=== PATIENT | female | born 1965 | race Caucasian/White ===

== ENCOUNTER 2020-01-25 11:07 | Outpatient (REF) | payer MEDICAID, SELFPAY | END 2020-01-25 11:08 | disposition home or self-care (01) | LOC: HO.LAB 11:07 | PROVIDERS: PCP Internal Medicine; Visit Provider Internal Medicine | DX: Z20.828 Contact with and (suspected) exposure to other viral communicable diseases (principal) | CPT/HCPCS: C9803; U0003 ==

== ENCOUNTER 2020-02-16 11:28 | Outpatient (REF) | payer MEDICAID, SELFPAY | END 2020-02-16 11:29 | disposition home or self-care (01) | LOC: HO.LAB 11:28 | PROVIDERS: PCP Internal Medicine; Visit Provider Internal Medicine | DX: Z20.828 Contact with and (suspected) exposure to other viral communicable diseases (principal) | CPT/HCPCS: 36415; C9803; U0003 ==

== ENCOUNTER 2021-11-07 15:14 | Emergency (ER) | payer MEDICAID, SELFPAY ==
[2021-11-07 16:24] VITALS: BP 114/70; PULSE 102; RESP 18; TEMP 37.4; O2SAT 98; BMI 34.2
[2021-11-07 17:08] LABS: MANUAL DIFF FLAG NO
[2021-11-07 17:31] LABS: COVID-19 Test Negative (Negative); IDNOW Serial# 16C4AD1C
[2021-11-07 17:36] LABS: Lactic Acid 1.3 mmol/L (0.5-2.0)
[2021-11-07 17:37] LABS: Basophils Percent Auto 0.4 % (0-2); Eosinophils Absolute Auto 0.1 X10*3/uL (0.0-0.4); Eosinophils Percent Auto 1.1 % (0-4); Hematocrit 42.5 % (37.0-47.0); Hemoglobin 14.3 g/dl (12.0-16.0); Imm Gran Abs Auto 0.03 X10*3/uL (0.00-0.03); Imm Gran Pct Auto 0.3 % (0.0-0.4); Lymphocytes Absolute Auto 2.1 X10*3/uL (1.2-4.9); Lymphocytes Percent Auto 19.8 % (20-40); Mean Corpuscular HGB Conc 33.6 g/dl (31.0-35.0); Mean Corpuscular Hemoglobin 29.7 pg (27.0-33.0); Mean Corpuscular Volume 88.2 fL (80.0-98.0); Mean Platelet Volume 10.7 fL (9.4-12.3); Monocytes Absolute Auto 1.1 X10*3/uL (0.1-1.2); Monocytes Percent Auto 10.3 % (2-11); Neutrophils Absolute Auto 7.1 x10*3/uL (2.0-8.3); Neutrophils Percent Auto 68.1 % (45-73); Platelet Count 204 X10*3/uL (160-400); Red Blood Count 4.82 X10*6/uL (4.20-5.50); White Blood Count 10.5 X10*3/uL (4.8-10.8)
[2021-11-07 17:41] LABS: Alanine Aminotransferase 24 U/L (0-31); Albumin Level 4.5 g/dL (3.5-5.0); Alkaline Phosphatase 94 U/L (39-117); Anion Gap 17 (12-20); Aspartate Amino Transferase 19 U/L (5-31); Bilirubin Total 0.7 mg/dL (0.0-1.0); Blood Urea Nitrogen 13 mg/dL (9-16); Calcium 9.4 mg/dL (8.4-10.2); Carbon Dioxide 25 mmol/L (22-29); Chloride 101 mmol/L (96-108); Creatinine Clr Calc Pharmacy 76.4; Estimated Glomerular Filt Rate > 60; Glucose Random 111 mg/dL (60-115); Potassium 4.5 mmol/L (3.3-5.1); Sodium 138 mmol/L (135-145); Total Protein 8.1 g/dL (6.5-8.0)
== END 2021-11-08 05:29 | disposition left against medical advice (07) ==
PROVIDERS: Emergency Provider Emergency Medicine
DX: R22.1 Localized swelling, mass and lump, neck (principal); Z20.822 Contact with and (suspected) exposure to COVID-19; R50.9 Fever, unspecified
CPT/HCPCS: 36415; 80053; 83605; 85025; 87040; 87635; 99282; 99283

== ENCOUNTER 2022-10-30 14:31 | Outpatient (AMB) | payer OTHER, SELFPAY ==
[2022-10-30 14:33] VITALS: BP 122/76; PULSE 104; O2SAT 97; BMI 33.7
--- NOTE | 2022-10-30 14:33 | A.OFFPC_ITS ---
Vital Signs 10/30/22 14:33 Height 5 ft 2 in Weight 184 lb BMI 33.7 BP 122/76 Blood Pressure Location Lt brachial Position Sitting Pulse 104 H Pulse Source Pulse Oximeter Temp Source Skin Pulse Oximetry (%) 97 Oxygen Delivery Method Room Air Intake Visit Reasons: [employer] pain in right arm Intake Note: pt states right arm pain [id number] Back Tacker Required: No Allergies metformin Adverse Reaction (Severe, Verified 10/30/22 14:59) Abdominal Pain Medication List - Last Reconciled 10/30/22 by SANGEETA Bain dulaglutide (Trulicity) 0.75 mg subcut QWEEK glipizide ER 2.5 mg PO DAILY Tobacco use date assessed: 10/30/22 Dental Screening Dental Screen Date: 10/30/22 Did you have a dental visit in the last 12 months?: Yes Did you have a dental problem in the last 6 months where you did not have access to dental care?: No Was dental information given to patient?: Patient has dentist HPI [employer] pain in right arm HPI Details Patient is a 56-year-old female who presents today to establish care. Previous PCP Dr. Guy perdomo [facility], last visit about 1 year ago. Medical history significant for diabetes - patient reports that she has been out of diabetes medications for the past 1 year, left shoulder pain-for the past about 2 months now-denies injury-reports pain is worse with activity-reports intermittent tingling sensation in her left wrist area- reports mild weakness in her left arm due to pain-reports taking Tylenol with no improvement, constipation-reports bowel movement and every 3-4 days. Patient reports last diabetic eye exam 1.5 years ago, patient also reports that doctor did see a dot in her right eye and at that time she did not need to have surgery- will refer to Ophthalmology for diabetic eye exam. Patient lives by herself and she works as a [employer]. [facility] Medical History (Updated 10/30/22 @ 15:22 by SANGEETA Bain) History of shingles Surgical History H/O tubal ligation History of cholecystectomy Family History Mother Diabetes Hypertension Intestinal cancer Glaucoma Father No problems noted. Social History Patient Tobacco Use Status: Never used Tobacco service: No Cognitive needs: No Hearing needs: No Vision needs: No Questionnaire PHQ-9 Over the last 2 weeks, how often have you been bothered by any of the following problems? 1. Little interest or pleasure in doing things: not at all 2. Feeling down, depressed, or hopeless: not at all 3. Trouble falling or staying asleep, or sleeping too much: not at all 4. Feeling tired or having little energy: not at all 5. Poor appetite or overeating: not at all 6. Feeling bad about yourself - or that you are a failure or have let yourself or your family down: not at all 7. Trouble concentrating on things, such as reading the newspaper or watching television: not at all 8. Moving or speaking so slowly that other people could have noticed. Or the opposite - being so fidgety or restless that you have been moving around a lot more than usual: not at all 9. Thoughts that you would be better off or of hurting yourself in some way: not at all Total score: 0 Depression Screening Interpretation: Negative 26837 - PHQ-9 Billing: Yes Source: Developed by Drs. Osmar Comer, Dbera Harper, Pablo Garcia and colleagues, with an educational madelaine from [employer]. Thrive Questionnaire Date Thrive assessed: 10/30/22 I am a: Patient What is your living situation today?: I have a steady place to live Within the past 12 months, did the food you bought not last and you didn't have the money to get more?: Never true Within the past 12 months, did you worry whether your food would run out before you got money to buy more?: Never true Do you have trouble paying for medicines?: No Do you have trouble getting transportation to medical appointments?: No Do you have trouble paying your heating and electricity bill?: No Do you have trouble taking care of your child, family member or friend?: No Do you have trouble with day-to-day activities such as bathing, preparing meals, shopping, managing finances, etc.?: No Are you currently unemployed and looking for a job?: No Are you interested in more education?: No Currently or been in a relationship where the following occur: no concerns reported AUDIT C Alcohol Use Questionnaire (AUDIT-C) 1. How often do you have a drink containing alcohol?: Never 3. How often do you have six or more drinks on one occasion?: Never Total Score: 0 Score Reviewed/Action Taken: No ROWDY-7 AMB Questionnaire ROWDY-7 Date ROWDY - 7 assessed: 10/30/22 Feeling nervous, anxious, or on edge: 0 = Not at all Not being able to stop or control worryin = Not at all Worrying too much about different things: 0 = Not at all Trouble relaxin = Not at all Being so restless that it is hard to sit still: 0 = Not at all Becoming easily annoyed or irritable: 0 = Not at all Feeling afraid as if something awful might happen: 0 = Not at all Total ROWDY-7 score (0-4 normal; 5-9 mild; 10-14 moderate; 15-21 severe): 0 Source: Developed by Drs. Osmar Comer, Debra Harper, Pablo Garcia and colleagues, with an educational madelaine from [employer]. ROWDY-7 Assessment Billing ROWDY-7 Assessment Tool: ROWDY-7 Assessment 37895 Review of Systems Const Denies body aches, Denies chills, Denies fever(s) and Denies headache(s) Eyes Denies change in vision ENT Denies dizziness, Denies otalgia, Denies headache(s), Denies nasal discharge, Denies sinus pain and Denies sore throat Card Denies chest pain, Denies edema, Denies lightheadedness and Denies dyspnea Resp Denies cough, Denies dyspnea and Denies wheezing GI Denies abdominal pain, Reports constipation (Intermittent), Denies diarrhea, Denies nausea and Denies vomiting Denies dysuria Musc Denies myalgias, Reports arthralgias, Denies joint swelling, Denies numbness and Reports tingling Skin/Breast Denies rash Neuro Denies dizziness, Denies headache(s), Denies numbness and Reports tingling Aller/Immun Denies wheezing Physical exam (Primary Care) Vital Signs: Last Vital Signs Pulse 104 H 10/30/22 14:33 BP 122/76 09/20/23 14:33 Pulse Ox 97 10/30/22 14:33 Oxygen Delivery Method Room Air 10/30/22 14:33 BMI result Body Mass Index 33.7 Tobacco/Smoking Status: Tobacco use Status Tobacco use date assessed 10/30/22 10/30/22 14:34 Patient Tobacco Use Status Never used Tobacco 10/30/22 14:35 PHQ-9: PHQ-9 Score PHQ-9: Total score 0 10/30/22 14:56 Depression Screening Interpretation: Negative Thrive Assessment: Date of Thrive Assessment Date Thrive assessed 10/30/22 10/30/22 14:35 Currently or been in a relationship where the following occur: no concerns reported Const General: cooperative and no acute distress Orientation/consciousness: patient oriented x3 HENMT Head: Yes normocephalic and Yes atraumatic Ears: TM's normal bilaterally Face and sinus: Yes sinuses nontender Mouth: oropharynx normal and moist mucous membranes Throat: Yes posterior oropharynx normal Eyes General: appearance normal, both eyes and all related structures Pupils: Equal, round and reactive pupils present EOM: EOMs intact bilaterally Neck Neck: Yes normal visual inspection, Yes full ROM and Yes no lymphadenopathy Thyroid: Thyroid normal Resp Effort & Inspection: normal respiratory effort and able to speak in complete sentences Auscultation: clear to auscultation bilaterally, no crackles, no rales, no rhonchi and no wheezes Cardio Rate: regular rate Rhythm: regular rhythm Heart sounds: S1 normal heart sound present, S2 normal heart sound present and no murmurs Peripheral pulses: radial pulses present on the right GI Palpation (GI): Soft to palpation, not firm, nontender, no guarding, not rigid and no hepatosplenomegaly Auscultation: normal bowel sounds General: No CVA tenderness Back/Spine/Pelvis Back: No CVA tenderness Skin General skin exam: no rashes or lesions noted Neuro Other: Mild weakness noted to left hand compared to right hand General: patient oriented x3 and CN's II-XI intact bilaterally Cranial nerves: Yes Equal, round and reactive pupils present Gait exam (Neuro): Normal gait present Extrem General: No edema Left upper extremity: shoulder/upper arm Details: inspection abnormal, tenderness (Anterior/posterior/lateral) and abnormal ROM (Pain with range of motion); no swelling, no ecchymosis, no crepitus, no deformity and no unsual warmth Results AMB Hemoglobin A1c AMB Hemoglobin A1c 8.5 % Last Edit by LYRIC Blanco on 10/30/22 14:56 Results Reviewed Results Reviewed: Laboratory Last Values Hgb A1c (Clinic) 8.5 % (4.0-6.0) H 10/30/22 14:48 Assessment and Plan Assessment & Plan (1) Constipation: Code(s): K59.00 - Constipation, unspecified Plan: Increase dietary fiber, fluid consumption, and exercise Start Colace daily p.r.n. (2) Left shoulder pain: Code(s): M25.512 - Pain in left shoulder Plan: Will obtain x-ray Physical therapy referral Will provide patient with naproxen b.i.d. p.r.n., diclofenac cream q.i.d. p.r.n., and lidocaine patch daily p.r.n. (3) Encounter to establish care: Code(s): Z76.89 - Persons encountering health services in other specified circumstances Plan: Patient presents to establish care, blood work ordered (4) Diabetes mellitus: Code(s): E11.9 - Type 2 diabetes mellitus without complications Plan: A1c 8.5 today, goal less than 7 Prescriptions sent for glipizide and Trulicity Continue low-carbohydrate diet Ophthalmology referral for diabetic eye exam Monitor blood sugars daily at home Plan Follow-up in 3 months for PE and labs Orders: Orders AMB Hemoglobin A1c Today Z13.9 - Encounter for screening, unspecified Vitamin B12 and Folate Today E11.9 - Type 2 diabetes mellitus without complications Lipid Panel Today E11.9 - Type 2 diabetes mellitus without complications Complete Blood Count Auto Diff Today E11.9 - Type 2 diabetes mellitus without complications Microalbumin, Random (w Creat) Today E11.9 - Type 2 diabetes mellitus without complications XR shoulder LT min 2V Today M25.512 - Pain in left shoulder Vitamin D 25-OH Total Today E11.9 - Type 2 diabetes mellitus without complications, Z86.19 - Personal history of other infectious and parasitic diseases TSH reflex Free T4 Today E11.9 - Type 2 diabetes mellitus without complications Comprehensive [place]. Panel Fast Today E11.9 - Type 2 diabetes mellitus without complications PT Evaluation and Treatment Today M25.512 - Pain in left shoulder Referrals Ophthalmology Referral E11.9 - Type 2 diabetes mellitus without complications Medications: New naproxen 375 mg PO Q12H PRN 30 tabs 0RF pain M25.512 - Pain in left shoulder dulaglutide (Trulicity) 0.75 mg (0.5 mL) subcut QWEEK 2 mL 2RF E11.9 - Type 2 diabetes mellitus without complications glipizide ER 2.5 mg PO DAILY 90 tabs 1RF E11.9 - Type 2 diabetes mellitus without complications blood-glucose meter (FreeStyle Lite Meter kit) test daily 1 ea 0RF E11.9 - Type 2 diabetes mellitus without complications blood sugar diagnostic (FreeStyle Lite Strips) test daily 100 ea 2RF E11.9 - Type 2 diabetes mellitus without complications lancets (FreeStyle Lancets) test daily 100 ea 2RF E11.9 - Type 2 diabetes mellitus without complications docusate sodium (Colace) 100 mg PO DAILY PRN 30 caps 0RF constipation K59.00 - Constipation, unspecified lidocaine 4% (Aspercreme (lidocaine)) 1 patch topical DAILY PRN 30 ea 0RF pain M25.512 - Pain in left shoulder diclofenac sodium 1% (Arthritis Pain (diclofenac)) 2 grams topical QID PRN 100 grams 0RF pain M25.512 - Pain in left shoulder Coding Level of Care Code New Pt Level 4 (29135) Diagnoses Constipation K59.00 Left shoulder pain M25.512 Encounter to establish care Z76.89 Diabetes mellitus E11.9 Additional Codes ROWDY-7 Assessment Billing - ROWDY-7 Assessment Tool: ROWDY-7 Assessment 09133 ([id number])
== END 2022-10-30 15:28 | disposition home or self-care (01) ==
PROVIDERS: Visit Provider Nurse Practitioner Family
DX: E11.9 Type 2 diabetes mellitus without complications (principal); K59.00 Constipation, unspecified; M25.512 Pain in left shoulder; Z76.89 Persons encountering health services in other specified circumstances
CPT/HCPCS: 83036; 99204

== ENCOUNTER 2022-10-30 15:48 | Outpatient (REF) | payer OTHER, SELFPAY ==
--- NOTE | ~2022-10-30 | XR_ITS ---
EXAMINATION: XR SHOULDER, LEFT CLINICAL INFORMATION: Left shoulder pain. COMPARISON: None available. TECHNIQUE: AP external rotation, Grashey, scapular Y, and axillary views of the left shoulder. FINDINGS: No acute fracture or dislocation. Small acromial clavicular marginal osteophytes. No glenohumeral joint space narrowing or marginal osteophytes. No osseous erosion. No abnormal soft tissue calcification. XR/XR shoulder LT min 2V IMPRESSION: Mild acromioclavicular osteoarthritis.
== END 2022-10-30 15:49 | disposition home or self-care (01) ==
LOC: HO.XRAY 15:48
PROVIDERS: PCP Nurse Practitioner Family; Visit Provider Nurse Practitioner Family
DX: M25.512 Pain in left shoulder (principal)
CPT/HCPCS: 73030